=== PATIENT | male | born 1980 | race Caucasian/White ===

== ENCOUNTER 2019-05-30 00:25 | Emergency (ER) | payer SELFPAY ==
[2019-05-30] MEDS ORDERED: traMADol HCl 50 MG TAB ONE (00:46)
== END 2019-05-30 00:50 | disposition home or self-care (01) ==
LOC: BURERS 00:25
DX: M25.512 Pain in left shoulder (principal); M25.511 Pain in right shoulder; M67.432 Ganglion, left wrist; F17.210 Nicotine dependence, cigarettes, uncomplicated
CPT/HCPCS: 99283